=== PATIENT | female | born 1985 | race American Indian/Alaskan Native ===

== ENCOUNTER 2018-09-17 09:09 | Emergency (ER) | payer OTHER ==
[2018-09-17 09:15] VITALS: BP 153/67
--- NOTE | 2018-09-17 10:26 | Emergency Department Report ---
Chief Complaint: Upper Respiratory Infection Stated Complaint: DIARRHEA/SWOLLEN FACE Time Seen by Provider: 09/17/18 10:25 - HPI History of Present Illness: Ms. Pagan presents with mild URI symptoms and diarrhea. MSE performed. REcommended OTC treatments. - Exam Vital Signs: Vital Signs 09/17/18 09:14 Temperature 97.9 F Pulse Rate 84 Respiratory 18 Rate Blood Pressure 153/67 O2 Sat by Pulse 99 Oximetry MSE screening note: Focused history and physical exam performed. Due to findings the following was ordered: ED Disposition for MSE Clinical Impression: Viral infection Disposition: Z- MED SCREENING EXAM-LEFT Is pt being admited?: No Does the pt Need Aspirin: No Condition: Stable Forms: Work/School Release Form(ED)
[2018-09-18] MEDS ORDERED: ALUM-MAG HYDROX-SIMETH 200-200-20MG/5ML ONE ×2 (07:52→07:53)
== END 2018-09-17 10:49 | disposition left against medical advice (07) ==
LOC: ED 09:09
DX: B34.9 Viral infection, unspecified (principal); Z88.2 Allergy status to sulfonamides
CPT/HCPCS: 99282

== ENCOUNTER 2021-04-23 13:17 | Emergency (ER) | payer SELFPAY ==
--- NOTE | 2021-04-23 14:43 | Emergency Department Report ---
ED General Adult HPI - General Chief complaint: Urogenital-Female Stated complaint: PELVIC PAIN Time Seen by Provider: 04/23/21 13:46 Source: patient Mode of arrival: Ambulatory Limitations: No Limitations - History of Present Illness Initial comments: 35-year-old -[place] female patient presents with complaints of left flank pain radiating to her left lower abdomen x2 days. She also admits to dysuria and urinary frequency. No history of kidney stones per patient. Past medical history includes anemia. She denies any nausea/vomiting/diarrhea, fever/chills/sweats, vaginal discharge/dyspareunia/vaginal bleeding, or stool changes. Patient rates her current pain is 8/10 in severity. -: Sudden Severity scale (0 -10): 9 - Related Data Home Medications Medication Instructions Recorded Confirmed Last Taken Iron [Iron 18 MG TAB] 30 mg PO QDAY 04/23/21 04/23/21 04/22/21 09:00 Previous Rx's Medication Instructions Recorded Last Taken Type Acetaminophen/Codeine [Tylenol 1 tab PO Q8H PRN #6 tab 04/23/21 Unknown Rx /Codeine # 3 tab] Ciprofloxacin HCl 500 mg PO BID 7 Days #14 tablet 04/23/21 Unknown Rx Ibuprofen [Motrin 800 MG tab] 800 mg PO Q8HR PRN #20 tablet 04/23/21 Unknown Rx Allergies Allergy/AdvReac Type Severity Reaction Status Date / Time Sulfa (Sulfonamide Allergy Seizure Verified 04/23/21 13:27 Antibiotics) ED Review of Systems ROS: Stated complaint: PELVIC PAIN Other details as noted in HPI Constitutional: denies: chills, fever, malaise Respiratory: denies: cough, shortness of breath Cardiovascular: denies: chest pain Gastrointestinal: abdominal pain. denies: nausea, vomiting, diarrhea, constipation Genitourinary: urgency, dysuria, frequency. denies: hematuria, discharge, abnormal menses, dyspareunia Skin: denies: change in color Neurological: denies: headache ED Past Medical Hx - Past Medical History Hx Seizures: Yes Additional medical history: ANEMIA, Blood Transfusion, - Surgical History Additional Surgical History: x1 - Social History Smoking Status: Never Smoker Substance Use Type: Alcohol - Medications Home Medications: Home Medications Medication Instructions Recorded Confirmed Last Taken Type Acetaminophen/Codeine [Tylenol 1 tab PO Q8H PRN #6 tab 04/23/21 Unknown Rx /Codeine # 3 tab] Ciprofloxacin HCl 500 mg PO BID 7 Days #14 tablet 04/23/21 Unknown Rx Ibuprofen [Motrin 800 MG tab] 800 mg PO Q8HR PRN #20 tablet 04/23/21 Unknown Rx Iron [Iron 18 MG TAB] 30 mg PO QDAY 04/23/21 04/23/21 04/22/21 09:00 History ED Physical Exam - General Limitations: No Limitations General appearance: alert, in no apparent distress - Head Head exam: Present: atraumatic, normocephalic - Eye Eye exam: Present: normal appearance. Absent: scleral icterus - Neck Neck exam: Present: normal inspection - Respiratory Respiratory exam: Present: normal lung sounds bilaterally. Absent: respiratory distress - Cardiovascular Cardiovascular Exam: Present: regular rate, normal rhythm - GI/Abdominal GI/Abdominal exam: Present: soft, normal bowel sounds. Absent: distended, tenderness, guarding, rebound, rigid - Extremities Exam Extremities exam: Present: full ROM - Back Exam Back exam: Present: CVA tenderness (L). Absent: vertebral tenderness - Neurological Exam Neurological exam: Present: alert, oriented X3, normal gait - Psychiatric Psychiatric exam: Present: normal affect, normal mood - Skin Skin exam: Present: warm, dry, intact, normal color. Absent: rash ED Course Vital Signs 04/23/21 13:29 Temperature 97.7 F Pulse Rate 85 Respiratory 16 Rate Blood Pressure 150/92 [Left] O2 Sat by Pulse 100 Oximetry ED Medical Decision Making - Lab Data Result diagrams: 04/23/21 15:58 04/23/21 15:58 - Radiology Data Radiology results: report reviewed CT abdomen pelvis without contrast All CT scans at this location are performed using CT dose reduction for ALARA by means of automated exposure control. COMPARISON: None available. FINDINGS: Abdomen and pelvis: The lower lungs are clear. The liver is borderline fatty. The spleen, pancreas adrenal glands are unremarkable. There multiple calculi within the left kidney the largest of which measures about 4 mm in diameter. No obstructive ureteral calculus is identified. No free air or free fluid. No bowel obstruction. Small fat-containing periumbilical hernia. The appendix is unremarkable. Mild fluid noted within the endometrial canal. Urinary bladder is par tially fluid distended. No significant free pelvic fluid. There is a 1.8 cm cyst within the left ovary. IMPRESSION: 1. Hepatomegaly. Fatty liver 2. Nonobstructive left-sided nephrolithiasis. 3. Other incidental findings as noted above - Medical Decision Making 35-year-old -[place] female patient presents with complaints of left flank pain radiating to her left lower abdomen x2 days. She also admits to dysuria and urinary frequency. No history of kidney stones per patient. Past medical history includes anemia. She denies any nausea/vomiting/diarrhea, fever/chills/sweats, vaginal discharge/dyspareunia/vaginal bleeding, or stool changes. Patient rates her current pain is 8/[address] abdomen is negative for any acute abnormalities. White count was normal on CBC. Kidney function is normal CMP. UA shows UTI. Given left CVA tenderness, will cover patient for pyelonephritis. Recommend follow-up with PCP in 3 days. Patient given Rocephin IM here and will discharge home with ciprofloxacin. She is well-appearing, her vitals are stable, she is stable for discharge home. Discussed presumptive diagnosis, care plan, and signs and symptoms that should prompt immediate return to the ED with patient, she verbalizes understanding. Critical care attestation.: If time is entered above; I have spent that time in minutes in the direct care of this critically ill patient, excluding procedure time. ED Disposition Clinical Impression: Pyelonephritis Disposition: 01 HOME / SELF CARE / HOMELESS Is pt being admited?: No Condition: Stable Instructions: Pyelonephritis, Adult Prescriptions: Ciprofloxacin HCl 500 mg PO BID 7 Days #14 tablet Ibuprofen [Motrin 800 MG tab] 800 mg PO Q8HR PRN #20 tablet PRN Reason: pain Acetaminophen/Codeine [Tylenol /Codeine # 3 tab] 1 tab PO Q8H PRN #6 tab PRN Reason: Pain , Severe (7-10) Referrals: [facility] [Provider Group] - 3-5 Days PRIMARY CARE, [Primary Care Provider] - 3-5 Days Forms: Work/School Release Form(ED)
[2021-04-23 14:49] LABS: HCG Qualitative,Urine Negative (Negative)
--- NOTE | 2021-04-23 16:07 | Cat Scan Report ---
CT abdomen pelvis wo con INDICATION / CLINICAL INFORMATION: left flank pain, dysuria. TECHNIQUE: CT abdomen pelvis without contrast All CT scans at this location are performed using CT dose reductio n for ALARA by means of automated exposure control. COMPARISON: None available. FINDINGS: Abdomen and pelvis: The lower lungs are clear. The liver is borderline fatty. The spleen, pancreas ad renal glands are unremarkable. There multiple calculi within the left kidney the largest of which kenny sures about 4 mm in diameter. No obstructive ureteral calculus is identified. No free air or free fluid. No bowel obstruction. Small fat-containing periumbilical hernia. The appen mike is unremarkable. Mild fluid noted within the endometrial canal. Urinary bladder is partially flui d distended. No significant free pelvic fluid. There is a 1.8 cm cyst within the left ovary. IMPRESSION: 1. Hepatomegaly. Fatty liver 2. Nonobstructive left-sided nephrolithiasis. 3. Other incidental findings as noted above Signer Name: Joshua Ramirez MD Signed: 04/23/2021 4:03 PM Workstation Name: [id number]
[2021-04-23 16:37] LABS: Basophils % (Auto) 0.3 % (0.0-1.8); Eosinophils # (Auto) 0.1 K/mm3 (0.0-0.4); Eosinophils % (Auto) 0.9 % (0.0-4.3); Lymphocytes # (Auto) 2.2 K/mm3 (1.2-5.4); Lymphocytes % (Auto) 35.4 % (13.4-35.0); Mean Corpuscular HGB Conc 30 % (30-34); Mean Corpuscular Volume 75 fl (79-97); Monocytes # (Auto) 0.5 K/mm3 (0.0-0.8); Monocytes % (Auto) 7.2 % (0.0-7.3); Platelet Count 322 K/mm3 (140-440); Red Blood Count 5.36 M/mm3 (3.65-5.03)
[2021-04-23 16:41] LABS: Hemoglobin 12.1 gm/dl (10.1-14.3)
[2021-04-23 16:59] LABS: Alanine Aminotransferase 20 units/L (7-56); Albumin 3.9 g/dL (3.9-5); Blood Urea Nitrogen 8 mg/dL (7-17); Calcium 9.2 mg/dL (8.4-10.2); Hemolysis Index 21
[2021-04-23 17:02] LABS: BUN/Creatinine Ratio 20
[2021-04-23 17:07] LABS: Bacteria,Urine 1+ /HPF (Negative); Bilirubin,Urine NEG (Negative); Blood,Urine NEG (Negative); Color,Urine Yellow (Yellow); Mucus,Urine FEW /HPF; Protein,Urine <15 mg/dL mg/dL (Negative); Urobilinogen,Urine < 2.0 mg/dL (<2.0)
[2021-04-23] MEDS ORDERED: cefTRIAXone/NS 1 GM/50 ML 1 GM/50 ML BAG IV ONE (17:15)
[2021-04-23] MEDS ORDERED: LIDOCAINE-MPF (1%) 10 MG/1 ML VIAL 5 ML INFILTRATI ONE (17:42)
[2021-04-23 18:32] VITALS: BP 149/84
== END 2021-04-23 18:33 | disposition home or self-care (01) ==
LOC: ED 13:17
DX: N12 Tubulo-interstitial nephritis, not specified as acute or chronic (principal)
CPT/HCPCS: 36415; 74176; 80053; 81001; 81025; 85025; 87086; 96365; 96372; 99284; J0696; J3490

== ENCOUNTER 2021-05-16 13:39 | Emergency (ER) | payer SELFPAY ==
[2021-05-16] MEDS ORDERED: ASPIRIN 325 MG TAB PO ONE (14:08)
--- NOTE | 2021-05-16 14:32 | Emergency Department Report ---
ED Chest Pain HPI - General Chief Complaint: Chest Pain Stated Complaint: Headache, Chest Pain, Arm Pain Time Seen by Provider: 05/16/21 14:02 Source: patient Mode of arrival: Ambulatory Limitations: No Limitations - History of Present Illness Initial Comments: Patient is a 35-year-old female presents emergency room with complaints of mid sternal chest pain that began this morning at 1145 AM while she was at work. She denies any exacerbating factors. She states it feels like a pressure and intermittent stabbing sensation. She states a couple hours later she was having some pain in her left arm but states that she was holding her arm close to her so she is not sure if it is from that. She denies any fall or injury. She denies any diaphoresis, shortness of breath, pleuritic pain, hemoptysis, fever, nausea, vomiting, diarrhea. She reports that last week she was having cough cold symptoms but those have resolved. No past medical history. Allergy to sulfa. She is a non-smoker. Severity scale (0 -10): 9 - Related Data Home Medications Medication Instructions Recorded Confirmed Last Taken Iron [Iron 18 MG TAB] 30 mg PO QDAY 04/23/21 04/23/21 04/22/21 09:00 Previous Rx's Medication Instructions Recorded Last Taken Type Acetaminophen/Codeine [Tylenol 1 tab PO Q8H PRN #6 tab 04/23/21 Unknown Rx /Codeine # 3 tab] Ciprofloxacin HCl 500 mg PO BID 7 Days #14 tablet 04/23/21 Unknown Rx Ibuprofen [Motrin 800 MG tab] 800 mg PO Q8HR PRN #20 tablet 04/23/21 Unknown Rx Allergies Allergy/AdvReac Type Severity Reaction Status Date / Time Sulfa (Sulfonamide Allergy Seizure Verified 05/16/21 14:01 Antibiotics) Heart Score - HEART Score History: Slightly suspicious EKG: Normal Age: < 45 Risk factors: 1-2 risk factors Troponin: < normal limit HEART Score: 1 - EKG Read Time Time EKG Completed: 13:59 EKG Read Time: 14:05 ED Review of Systems ROS: Stated complaint: Headache, Chest Pain, Arm Pain Other details as noted in HPI Comment: All other systems reviewed and negative ED Past Medical Hx - Past Medical History Hx Seizures: Yes Additional medical history: ANEMIA, Blood Transfusion, - Surgical History Additional Surgical History: x1 - Social History Smoking Status: Never Smoker Substance Use Type: Alcohol - Medications Home Medications: Home Medications Medication Instructions Recorded Confirmed Last Taken Type Acetaminophen/Codeine [Tylenol 1 tab PO Q8H PRN #6 tab 04/23/21 Unknown Rx /Codeine # 3 tab] Ciprofloxacin HCl 500 mg PO BID 7 Days #14 tablet 04/23/21 Unknown Rx Ibuprofen [Motrin 800 MG tab] 800 mg PO Q8HR PRN #20 tablet 04/23/21 Unknown Rx Iron [Iron 18 MG TAB] 30 mg PO QDAY 04/23/21 04/23/21 04/22/21 09:00 History ED Physical Exam - General Limitations: No Limitations General appearance: alert, in no apparent distress - Head Head exam: Present: atraumatic, normocephalic - Eye Eye exam: Present: normal appearance - ENT ENT exam: Present: mucous membranes moist - Respiratory Respiratory exam: Present: normal lung sounds bilaterally. Absent: respiratory distress, wheezes, rales, rhonchi, stridor, chest wall tenderness, accessory muscle use, decreased breath sounds, prolonged expiratory - Cardiovascular Cardiovascular Exam: Present: regular rate, normal rhythm, normal heart sounds. Absent: systolic murmur, diastolic murmur, rubs, gallop - Neurological Exam Neurological exam: Present: alert, oriented X3 - Psychiatric Psychiatric exam: Present: normal affect, normal mood - Skin Skin exam: Present: warm, dry, intact ED Course Vital Signs 05/16/21 05/16/21 13:57 18:21 Temperature 98.1 F 97.8 F Pulse Rate 90 79 Respiratory 18 18 Rate Blood Pressure 131/79 133/86 [Left] O2 Sat by Pulse 100 98 Oximetry ED Medical Decision Making - Lab Data Result diagrams: 05/16/21 14:20 05/16/21 14:20 Lab Results 05/16/21 05/16/21 05/16/21 Range/Units 14:20 14:20 14:20 WBC 5.9 (4.5-11.0) K/mm3 RBC 5.74 H (3.65-5.03) M/mm3 Hgb 12.9 (10.1-14.3) gm/dl Hct 43.2 H (30.3-42.9) % MCV 75 L (79-97) fl MCH 22 L (28-32) pg MCHC 30 (30-34) % RDW 18.1 H (13.2-15.2) % Plt Count 328 (140-440) K/mm3 Lymph % (Auto) 31.8 (13.4-35.0) % [place] % (Auto) 9.7 H (0.0-7.3) % Eos % (Auto) 0.4 (0.0-4.3) % Baso % (Auto) 0.7 (0.0-1.8) % Lymph # (Auto) 1.9 (1.2-5.4) K/mm3 [place] # (Auto) 0.6 (0.0-0.8) K/mm3 Eos # (Auto) 0.0 (0.0-0.4) K/mm3 Baso # (Auto) 0.0 (0.0-0.1) K/mm3 Seg Neutrophils % 57.4 (40.0-70.0) % Seg Neutrophils # 3.4 (1.8-7.7) K/mm3 Sodium 138 (137-145) mmol/L Potassium 4.3 (3.6-5.0) mmol/L Chloride 102.1 (98-107) mmol/L Carbon Dioxide 23 (22-30) mmol/L Anion Gap 17 mmol/L BUN 10 (7-17) mg/dL Creatinine 0.6 (0.6-1.2) mg/dL Estimated GFR > 60 ml/min BUN/Creatinine Ratio 17 % Glucose 115 H (65-100) mg/dL Calcium 9.3 (8.4-10.2) mg/dL Total Bilirubin 0.20 (0.1-1.2) mg/dL AST 29 (5-40) units/L ALT 29 (7-56) units/L Alkaline Phosphatase 96 (35-129) units/L Troponin T < 0.010 (0.00-0.029) ng/mL Total Protein 7.7 (6.3-8.2) g/dL Albumin 4.2 (3.9-5) g/dL Albumin/Globulin Ratio 1.2 % HCG, Qual Negative (Negative) 05/16/21 Range/Units 17:08 WBC (4.5-11.0) K/mm3 RBC (3.65-5.03) M/mm3 Hgb (10.1-14.3) gm/dl Hct (30.3-42.9) % MCV (79-97) fl MCH (28-32) pg MCHC (30-34) % RDW (13.2-15.2) % Plt Count (140-440) K/mm3 Lymph % (Auto) (13.4-35.0) % [place] % (Auto) (0.0-7.3) % Eos % (Auto) (0.0-4.3) % Baso % (Auto) (0.0-1.8) % Lymph # (Auto) (1.2-5.4) K/mm3 [place] # (Auto) (0.0-0.8) K/mm3 Eos # (Auto) (0.0-0.4) K/mm3 Baso # (Auto) (0.0-0.1) K/mm3 Seg Neutrophils % (40.0-70.0) % Seg Neutrophils # (1.8-7.7) K/mm3 Sodium (137-145) mmol/L Potassium (3.6-5.0) mmol/L Chloride (98-107) mmol/L Carbon Dioxide (22-30) mmol/L Anion Gap mmol/L BUN (7-17) mg/dL Creatinine (0.6-1.2) mg/dL Estimated GFR ml/min BUN/Creatinine Ratio % Glucose (65-100) mg/dL Calcium (8.4-10.2) mg/dL Total Bilirubin (0.1-1.2) mg/dL AST (5-40) units/L ALT (7-56) units/L Alkaline Phosphatase (35-129) units/L Troponin T < 0.010 (0.00-0.029) ng/mL Total Protein (6.3-8.2) g/dL Albumin (3.9-5) g/dL Albumin/Globulin Ratio % HCG, Qual (Negative) - EKG Data EKG shows normal: sinus rhythm, axis, intervals, QRS complexes, ST-T waves Rate: normal - Radiology Data Radiology results: report reviewed Ordering Physician: FABIANA RAMOS Date of Service: 05/16/21 Procedure(s): XR chest routine 2V Accession Number(s): [id number] cc: FABIANA RAMOS Fluoro Time In Minutes: XR chest routine 2V INDICATION / CLINICAL INFORMATION: Chest Pain COMPARISON: December 23, 2018 FINDINGS: SUPPORT DEVICES: None. HEART / MEDIASTINUM: No significant abnormality. LUNGS / PLEURA: Lungs are clear. Costophrenic sulci are sharp. No pneumothorax. ADDITIONAL FINDINGS: No significant additional findings. IMPRESSION: 1. No acute findings. Signer Name: Florencio Marinelli MD Signed: 05/16/2021 2:56 PM Workstation Name: [id number] Transcribed By: JUDI Dictated By: Florencio Marinelli MD Electronically Authenticated By: Florencio Marinelli MD Signed Date/Time: 05/16/211455 DD/ 55 TD/TT: - Medical Decision Making Patient is a 35-year-old female presents emergency room with complaints of mid sternal chest pain that began this morning at 1145 AM while she was at work. She denies any exacerbating factors. She states it feels like a pressure and intermittent stabbing sensation. She states a couple hours later she was having some pain in her left arm but states that she was holding her arm close to her so she is not sure if it is from that. She denies any fall or injury. She denies any diaphoresis, shortness of breath, pleuritic pain, hemoptysis, fever, nausea, vomiting, diarrhea. She reports that last week she was having cough cold symptoms but those have resolved. No past medical history. Allergy to sulfa. She is a non-smoker. Vitals are normal. CXR: 1. No acute findings. EKG WNL. labs stable. troponin is negative x2. heart score is 1, low risk for cardiac event. PERC criteria negative for PE, PE unlikely. advised pt please fo llow-up with your primary care doctor. Please follow-up with a vendor manager. Return to emergency room for any new or worsening symptoms. Critical care attestation.: If time is entered above; I have spent that time in minutes in the direct care of this critically ill patient, excluding procedure time. ED Disposition Clinical Impression: Chest pain Qualifiers: Chest pain type: unspecified Qualified Code(s): R07.9 - Chest pain, unspecified Disposition: HOME / SELF CARE / HOMELESS Is pt being admited?: No Does the pt Need Aspirin: No Condition: Stable Instructions: Nonspecific Chest Pain, Adult Additional Instructions: Please follow-up with your primary care doctor. Please follow-up with a vendor manager. Return to emergency room for any new or worsening symptoms. Referrals: PRIMARY CARE, [Primary Care Provider] - 3-5 Days STAR DAVIDSON MD [Staff Physician] - 3-5 Days Time of Disposition: 17:50 Print Language: VENEZUELAN
[2021-05-16 14:38] LABS: Basophils % (Auto) 0.7 % (0.0-1.8); Eosinophils % (Auto) 0.4 % (0.0-4.3); Lymphocytes # (Auto) 1.9 K/mm3 (1.2-5.4); Lymphocytes % (Auto) 31.8 % (13.4-35.0); Mean Corpuscular HGB Conc 30 % (30-34); Mean Corpuscular Volume 75 fl (79-97); Monocytes # (Auto) 0.6 K/mm3 (0.0-0.8); Monocytes % (Auto) 9.7 % (0.0-7.3); Platelet Count 328 K/mm3 (140-440); Red Blood Count 5.74 M/mm3 (3.65-5.03); Red Cell Distribution Width 18.1 % (13.2-15.2)
[2021-05-16 14:39] LABS: Hematocrit 43.2 % (30.3-42.9); Hemoglobin 12.9 gm/dl (10.1-14.3)
[2021-05-16 14:58] LABS: Alanine Aminotransferase 29 units/L (7-56); Albumin 4.2 g/dL (3.9-5); BUN/Creatinine Ratio 17; Blood Urea Nitrogen 10 mg/dL (7-17); Calcium 9.3 mg/dL (8.4-10.2); Hemolysis Index 0
--- NOTE | 2021-05-16 15:01 | XRay Report ---
XR chest routine 2V INDICATION / CLINICAL INFORMATION: Chest Pain COMPARISON: December 23, 2018 FINDINGS: SUPPORT DEVICES: None. HEART / MEDIASTINUM: No significant abnormality. LUNGS / PLEURA: Lungs are clear. Costophrenic sulci are sharp. No pneumothorax. ADDITIONAL FINDINGS: No significant additional findings. IMPRESSION: 1. No acute findings. Signer Name: Florencio Marinelli MD Signed: 05/16/2021 2:56 PM Workstation Name: [id number]
[2021-05-16 18:25] VITALS: BP 133/86
--- NOTE | 2021-05-17 17:30 | Electrocardiograph Report ---
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
== END 2021-05-16 18:25 | disposition home or self-care (01) ==
LOC: ED 13:39
DX: R07.81 Pleurodynia (principal)
CPT/HCPCS: 36415; 71046; 80053; 84484; 84703; 85025; 93005; 99284

== ENCOUNTER 2021-09-27 10:03 | Emergency (ER) | payer OTHER ==
[2021-09-27] MEDS ORDERED: KETOROLAC 10 MG TAB PO ONE (12:03)
[2021-09-27 13:28] LABS: HCG Qualitative,Urine Negative (Negative)
[2021-09-27 13:35] LABS: Bilirubin,Urine NEG (Negative); Blood,Urine LG (Negative); Color,Urine Red (Yellow); Mucus,Urine FEW /HPF; Urobilinogen,Urine < 2.0 mg/dL (<2.0)
[2021-09-27 13:39] LABS: RBC,Urine > 182.0 /HPF (0.0-6.0)
--- NOTE | 2021-09-27 13:59 | Emergency Department Report ---
ED Back Pain/Injury HPI - General Chief Complaint: Urogenital-Female Stated Complaint: SEVERE BACK/SIDE PAIN Time Seen by Provider: 09/27/21 11:59 Source: patient Limitations: No Limitations - History of Present Illness Initial Comments: 36-year-old black female with a past medical history of anemia presents to the emergency department for evaluation of right-sided lower back pain with dysuria for the past 4 to 5 days. She states that pain started just before her menstrual period but is worse than the menstrual pain that she usually has. She denies fever, abdominal pain, nausea, vomiting, and vaginal discharge. She states that back pain is 7 out of 10 and worse with movement. She denies any injury or trauma. MD Complaint: back pain -: days(s) Similar Symptoms Previously: No (5) Place: home Radiation: none Severity: moderate Severity scale (0 -10): 7 Quality: aching Consistency: intermittent Worsens With: movement Associated Symptoms: denies: confusion, weakness, chest pain, numbness, difficulty walking, cough, difficulty urinating, diaphoresis, incontinence, fever/chills, constipation, headaches, abdominal pain, loss of appetite, malaise, nausea/vomiting, rash, seizure, shortness of breath, syncope - Related Data Home Medications Medication Instructions Recorded Confirmed Last Taken Iron [Iron 18 MG TAB] 30 mg PO QDAY 04/23/21 09/27/21 1 Day Ago ~09/26/21 18 mg Previous Rx's Medication Instructions Recorded Last Taken Type Ibuprofen [Motrin 800 MG tab] 800 mg PO Q8HR PRN #20 tablet 04/23/21 Unknown Rx Allergies Allergy/AdvReac Type Severity Reaction Status Date / Time Sulfa (Sulfonamide Allergy Seizure Verified 05/16/21 14:01 Antibiotics) ED Review of Systems ROS: Stated complaint: SEVERE BACK/SIDE PAIN Other details as noted in HPI Comment: All other systems reviewed and negative Constitutional: denies: chills, fever Respiratory: denies: cough, shortness of breath, SOB with exertion, SOB at rest Cardiovascular: denies: chest pain, palpitations, dyspnea on exertion, orthopnea, edema, syncope, paroxysmal nocturnal dyspnea Gastrointestinal: denies: abdominal pain, nausea, vomiting, diarrhea, hematemesis, melena, hematochezia Genitourinary: dysuria, frequency. denies: urgency, hematuria, discharge, dyspareunia Musculoskeletal: back pain Skin: denies: rash, lesions Neurological: denies: headache, weakness Psychiatric: denies: anxiety, depression ED Past Medical Hx - Past Medical History Previous Medical History?: Yes Hx Seizures: Yes Additional medical history: ANEMIA, Blood Transfusion, - Surgical History Past Surgical History?: Yes Additional Surgical History: x1 - Social History Smoking Status: Never Smoker Substance Use Type: Alcohol - Medications Home Medications: Home Medications Medication Instructions Recorded Confirmed Last Taken Type Ibuprofen [Motrin 800 MG tab] 800 mg PO Q8HR PRN #20 tablet 04/23/21 09/27/21 Unknown Rx Iron [Iron 18 MG TAB] 30 mg PO QDAY 04/23/21 09/27/21 1 Day Ago History ~09/26/21 18 mg ED Physical Exam - General Limitations: No Limitations General appearance: alert, in no apparent distress - Head Head exam: Present: atraumatic, normocephalic - Eye Eye exam: Present: normal appearance. Absent: conjunctival injection - Neck Neck exam: Present: normal inspection, full ROM. Absent: tenderness, lymphadenopathy - Respiratory Respiratory exam: Present: normal lung sounds bilaterally. Absent: respiratory distress, wheezes, rales, rhonchi, stridor, chest wall tenderness - Cardiovascular Cardiovascular Exam: Present: regular rate, normal heart sounds - GI/Abdominal GI/Abdominal exam: Present: soft. Absent: distended, tenderness, guarding, rebound, rigid, normal bowel sounds - Extremities Exam Extremities exam: Present: normal inspection, normal capillary refill. Absent: tenderness, pedal edema, joint swelling, calf tenderness - Back Exam Back exam: Present: normal inspection. Absent: CVA tenderness (R), CVA tenderness (L), paraspinal tenderness, vertebral tenderness - Expanded Back Exam Expanded Back exam: Absent: saddle anesthesia Back exam: Negative Straight Leg Raising: Left, Right - Neurological Exam Neurological exam: Present: alert, oriented X3, normal gait - Psychiatric Psychiatric exam: Present: normal affect, normal mood - Skin Skin exam: Present: warm, dry, intact, normal color ED Course Vital Signs 09/27/21 09/27/21 11:39 14:11 Temperature 98.1 F 96.5 F L Pulse Rate 84 81 Respiratory 18 16 Rate Blood Pressure 145/90 133/80 O2 Sat by Pulse 98 99 Oximetry - Reevaluation(s) Reevaluation #1: 09/27/21 13:56 Back pain improved. ED Medical Decision Making - Medical Decision Making 36-year-old black female with a past medical history of anemia presents to the emergency department for evaluation of right-sided lower back pain with dysuria for the past 4 to 5 days. She states that pain started just before her menstrual period but is worse than the menstrual pain that she usually has. She denies fever, abdominal pain, nausea, vomiting, and vaginal discharge. She states that back pain is 7 out of 10 and worse with movement. She denies any injury or trauma. No gross abnormalities noted on exam. Urine negative for urinary tract infection. Pain improved after medication. Patient will be discharged home with naproxen and Flagyl to take as needed for back pain. She is advised to take medications as prescribed and follow-up with primary care provider if no improvement or worsening symptoms. She verbalized understanding of and agreement with plan of care. Laboratory Tests 09/27/21 Unknown Urine Color Red Urine Turbidity Clear Urine pH 7.0 Ur Specific [place] 1.013 Urine Protein 30 mg/dl Urine Glucose (UA) Neg Urine Ketones Neg Urine Blood Lg Urine Nitrite Neg Ur Reducing Substances Not Reportable Urine Bilirubin Neg Urine Ictotest Not Reportable Urine Urobilinogen < 2.0 Ur Leukocyte Esterase Neg Urine WBC (Auto) 5.0 Urine RBC (Auto) > 182.0 U Epithel Cells (Auto) 1.0 Urine Mucus Few Urine HCG, Qual Negative Critical care attestation.: If time is entered above; I have spent that time in minutes in the direct care of this critically ill patient, excluding procedure time. ED Disposition Clinical Impression: Lower back pain Qualifiers: Chronicity: acute Back pain laterality: right Sciatica presence: without sciatica Qualified Code(s): M54.50 - Low back pain, unspecified Disposition: 01 HOME / SELF CARE / HOMELESS Is pt being admited?: No Does the pt Need Aspirin: No Condition: Stable Instructions: Acute Back Pain, Adult Additional Instructions: Take medications as prescribed. Follow-up with primary care provider if no improvement or worsening symptoms. Return to the emergency department as needed. Referrals: JUANA PHILLIPS MD [Primary Care Provider] - 3-5 Days Forms: Work/School Release Form(ED) Time of Disposition: 13:59
[2021-09-27 16:03] VITALS: BP 128/96
== END 2021-09-27 16:01 | disposition home or self-care (01) ==
LOC: ED 10:03
DX: M54.50 Low back pain, unspecified (principal); R56.9 Unspecified convulsions; Z88.2 Allergy status to sulfonamides
CPT/HCPCS: 81001; 81025; 99283